=== PATIENT | female | born 1975 | race American Indian/Alaskan Native ===

== ENCOUNTER 2017-03-02 16:07 | Emergency (ER) | payer BC ==
[2017-03-02] MEDS ORDERED: TYLENOL ONE (16:57)
[2017-03-02] MEDS ORDERED: TYLENOL PO ONE (17:00)
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
[2017-03-02] MEDS ORDERED: MORPHINE IM ONE (19:43)
[2017-03-02] MEDS ORDERED: ZOFRAN ODT PO ONE (19:44)
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
[2017-03-02 22:13] VITALS: BP 127/86
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
== END 2017-03-02 22:47 | disposition home or self-care (01) ==
LOC: ED 16:07
DX: S82.891A Other fracture of right lower leg, initial encounter for closed fracture (principal); G43.909 Migraine, unspecified, not intractable, without status migrainosus; V89.2XXA Person injured in unspecified motor-vehicle accident, traffic, initial encounter; Y93.89 Activity, other specified; Y99.8 Other external cause status; Y92.89 Other specified places as the place of occurrence of the external cause
CPT/HCPCS: 29515; 73610; 73630; 96372; 99284; J2270; Q0162